=== PATIENT | female | born 1975 | race Caucasian/White ===

== ENCOUNTER 2021-11-16 22:44 | Emergency (ER) | payer OTHER ==
[~2021-11-16] VITALS: Ht 165.1 cm; Wt 90.7 kg
[2021-11-16 23:19] VITALS: BP 140/91
--- NOTE | 2021-11-16 23:23 | NUR ---
pt in restroom collecting urine sample.
--- NOTE | 2021-11-16 23:28 | NUR ---
pt taken to bed 3.
--- NOTE | 2021-11-17 | NUR ---
received pt from intake and placed to bed 03. pt currently a/o x 4, gcs 15. able to move all extremities freely. pt is a 46 year old female with hx of tonsillectomy and appendectomy, kidney stones coming from home for c/o left flank pain that started yesterday morning. pt sts she took tylenol earlier with some relief but pain came back worse. pt currently denies dysuria or hematuria.
[2021-11-17] MEDS ORDERED: KETOROLAC 60 MG/2 ML VIAL IM ONE (00:30)
[2021-11-17] MEDS ORDERED: ONDANSETRON 4 MG ODT PO ONE (00:30)
[2021-11-17 00:55] LABS: APPEARANCE,URINE HAZY (CLEAR); BILIRUBIN,URINE NEGATIVE (NEGATIVE); BLOOD, URINE 1+ (NEGATIVE); COLOR,URINE YELLOW (YELLOW); LEUKOCYTE ESTERASE ,URINE NEGATIVE (NEGATIVE); NITRITE, URINE NEGATIVE (NEGATIVE); UGLUCOSE NEGATIVE (NEGATIVE)
[2021-11-17 01:05] LABS: RBC,URINE 0-5 /HPF (0-5); WBC,URINE 16-25 (MOD) /HPF (0-5)
[2021-11-17] MEDS ORDERED: NACL 0.9% 1,000 ML IV SCH (01:20)
[2021-11-17] MEDS ORDERED: ONDANSETRON 4 MG/2 ML VIAL IVP ONE (01:20)
[2021-11-17] MEDS ORDERED: KETOROLAC 30 MG/ML VIAL IVP ONE (01:20)
--- NOTE | 2021-11-17 01:39 | NUR ---
pt taken to CT via w/c.
[2021-11-17 02:17] LABS: BASOPHILS % (AUTO) 0.3 % (0.0-2.0); EOSINOPHILS # (AUTO) 0.1 K/uL (0-0.4); EOSINOPHILS % (AUTO) 0.5 % (0.0-4.0); HEMATOCRIT 34.9 % (36-48); HEMOGLOBIN 11.6 g/dL (12.0-16.0); LYMPHOCYTES # (AUTO) 1.1 K/uL (2.5-16.5); LYMPHOCYTES % (AUTO) 8.8 % (20.5-51.1); MEAN CORPUSCULAR HEMOGLOBIN 28 pg (27-31); MEAN CORPUSCULAR HGB CONC 33 g/dL (33-37); MEAN CORPUSCULAR VOLUME 82.9 fL (80-94); MONOCYTES # (AUTO) 0.7 K/uL (0.8-1.0); MONOCYTES % (AUTO) 5.5 % (1.7-9.3); NEUTROPHILS # (AUTO) 10.2 K/uL (1.8-7.7); NEUTROPHILS % (AUTO) 84.9 % (42.2-75.2); PLATELET COUNT (AUTO) 303 K/uL (140-450); RED BLOOD CELL COUNT(AUTO) 4.22 MIL/uL (4.20-5.40); RED CELL DISTRIBUTION WIDTH 14.6 % (11.6-13.7)
[2021-11-17 02:29] LABS: ALBUMIN 3.4 g/dL (3.4-5.0); ANION GAP 14.1 (8-16); CARBON DIOXIDE 25.8 mmol/L (21-32); CREATININE 0.8 mg/dL (0.6-1.3); POTASSIUM 3.9 mmol/L (3.5-5.1); TOTAL BILIRUBIN 0.2 mg/dL (0.0-1.0)
[2021-11-17 04:56] VITALS: BP 136/69
[2021-11-17] MEDS ORDERED: ACET-8386 PO (05:05)
[2021-11-17] MEDS ORDERED: CIPR500T4 PO (05:05)
[2021-11-17] MEDS ORDERED: IBUP-2213 PO (05:05)
[2021-11-17] MEDS ORDERED: ONDA8TAB87 PO (05:05)
--- NOTE | 2021-11-17 05:13 | NUR ---
d/c with [facility]> d/c education given. opportunity to ask questions given and answered. rx of zofran, motrin, norco and cipro given. IV site removed, bleeding controlled with sterile gauze and reinforced with tape.
== END 2021-11-17 05:13 | disposition home or self-care (01) ==
LOC: MED 22:44
DX: N39.0 Urinary tract infection, site not specified (principal); Z87.442 Personal history of urinary calculi; I10 Essential (primary) hypertension; Z88.0 Allergy status to penicillin; Z98.890 Other specified postprocedural states; Z90.49 Acquired absence of other specified parts of digestive tract
CPT/HCPCS: 36415; 74176; 80053; 81001; 81025; 83690; 85025; 87086; 96361; 96374; 96375; 99284; J1885; J2405; J7030